=== PATIENT | female | born 2000 | race African-American/Black ===

== ENCOUNTER 2019-11-18 13:34 | Emergency (ER) | payer MEDICAID ==
[2019-11-18 14:32] LABS: Bilirubin Negative (Negative); Blood, Urine 2+ (Negative); Clarity Turbid (Clear); Glucose, Urine (Dipstick) Normal (Negative); Leukocyte Negative Leu/uL (Negative); Nitrite Negative (Negative); Protein, Urine (Dipstick) Negative (Neg-Trace); RBC/HPF Greater than 50 HPF (0-3); Squamous Epithelial 0-3 HPF (0-3); Urobilinogen Normal mg/dL (Less than 2)
[2019-11-18 14:36] LABS: Pregnancy Test - Urine (BHCG) Negative (Negative); Pregu Control Background? CLEAR/WHITE (CLR/WHITE); Pregu Control Bar Appear? YES (CONTROL BAR); Specific Gravity 1.019 (1.002-1.036)
[2019-11-18 14:43] LABS: Bacteria/HPF 1+ HPF (None Seen)
[2019-11-18 16:23] LABS: #Basophils 0.1 thou/uL (0.0-0.2); #Eosinphils 0.1 thou/uL (0.0-0.7); #Lymphocytes 1.8 thou/uL (1.20-3.40); #Monocytes 0.5 thou/uL (0.11-0.59); #Neutrophils 4.7 thou/uL (1.40-6.50); %Eosinophils 1.6 % (0.0-10.0); %Lymphocytes 25.2 % (21.0-51.0); %Monocytes 7.4 % (0.0-10.0); %Neutrophils 64.8 % (42.0-75.0); Hemoglobin 14.9 g/dL (12.0-16.0); Mean Corpuscular HGB CONC 32.8 g/dL (32.0-36.0); Mean Corpuscular Hemoglobin 32.5 pg (27.0-31.0); Mean Platelet Volume 7.3 fL (7.4-10.4); Platelet Count 288 thou/uL (130-400); RBC Distribution Width 11.4 % (11.5-14.5); White Blood Cell (WBC) Count 7.2 thou/uL (4.8-10.8)
== END 2019-11-18 18:06 | disposition home or self-care (01) ==
LOC: ERS 13:34
DX: N39.0 Urinary tract infection, site not specified (principal); N93.9 Abnormal uterine and vaginal bleeding, unspecified
CPT/HCPCS: 36415; 81003; 81015; 81025; 84702; 85025; 86900; 86901; 99284

== ENCOUNTER 2020-06-09 16:24 | Emergency (ER) | payer MEDICAID, SELFPAY ==
[2020-06-09] MEDS ORDERED: Ciprofloxacin HCL/Dexameth Otic Drops 7.5 ml Bottle ONE (16:34)
== END 2020-06-09 16:44 | disposition home or self-care (01) ==
LOC: ERS 16:24
DX: H60.93 Unspecified otitis externa, bilateral (principal)
CPT/HCPCS: 99282

== ENCOUNTER 2020-07-06 02:23 | Emergency (ER) | payer OTHER ==
[2020-07-06 03:18] LABS: Bacteria/HPF None Seen HPF (None Seen); Bilirubin Negative (Negative); Blood, Urine Negative (Negative); Clarity Turbid (Clear); Glucose, Urine (Dipstick) Normal (Negative); Ketone, Urine Negative (Negative); Leukocyte 25 Leu/uL (Negative); Nitrite Negative (Negative); Protein, Urine (Dipstick) Negative (Neg-Trace); RBC/HPF 0-3 HPF (0-3); Urobilinogen Normal mg/dL (Less than 2); WBC/HPF 0-3 HPF (0-3)
[2020-07-06 03:30] LABS: #Basophils 0.1 thou/uL (0.0-0.2); #Eosinphils 0.1 thou/uL (0.0-0.7); #Lymphocytes 2.7 thou/uL (1.20-3.40); #Monocytes 0.8 thou/uL (0.11-0.59); #Neutrophils 7.8 thou/uL (1.40-6.50); %Basophils 0.6 % (0.0-1.0); %Eosinophils 1.1 % (0.0-10.0); %Lymphocytes 23.6 % (21.0-51.0); %Monocytes 7.1 % (0.0-10.0); %Neutrophils 67.6 % (42.0-75.0); Hemoglobin 11.9 g/dL (12.0-16.0); Mean Corpuscular HGB CONC 34.6 g/dL (32.0-36.0); Mean Corpuscular Hemoglobin 32.6 pg (27.0-31.0); Mean Corpuscular Volume 94.2 fL (78.0-98.0); Mean Platelet Volume 6.9 fL (7.4-10.4); Platelet Count 307 thou/uL (130-400); RBC Distribution Width 11.9 % (11.5-14.5); Red Blood Cell (RBC) Count 3.65 mill/uL (4.20-5.40); White Blood Cell (WBC) Count 11.5 thou/uL (4.8-10.8)
[2020-07-06 03:53] LABS: ALT (SGPT) 11 U/L (8-55); AST (SGOT) 16 U/L (5-34); Albumin 3.9 g/dL (3.5-5.0); Alkaline Phosphatase 48 U/L (40-110); Anion Gap 13 mmol/L (10-20); BUN (Urea Nitrogen) 13 mg/dL (7.0-18.7); Bilirubin, Total 0.2 mg/dL (0.2-1.2); Calc. Creatinine Clearance 0 mL/min (70-130); Calcium 9.2 mg/dL (7.8-10.44); Carbon Dioxide 22 mmol/L (22-29); Chloride 104 mmol/L (98-107); Estimated GFR-MDRD Greater than 90; Globulin 3.2 g/dL (2.4-3.5); Glucose 73 mg/dL (70-105); Potassium 3.4 mmol/L (3.5-5.1); Protein, Total 7.1 g/dL (6.0-8.3); Sodium 136 mmol/L (136-145)
[2020-07-06 08:23] LABS: SARS-CoV-2 MS2 Positive; SARS-CoV-2 N Gene Negative; SARS-CoV-2 S Gene Negative; SARS-CoV-2 by NAA Not Detected (NotDetected); SARS-CoV-2 orf1ab Negative
== END 2020-07-06 04:15 | disposition home or self-care (01) ==
LOC: ERS 02:23
DX: O98.512 Other viral diseases complicating pregnancy, second trimester (principal); B34.9 Viral infection, unspecified; O99.012 Anemia complicating pregnancy, second trimester; Z20.828 Contact with and (suspected) exposure to other viral communicable diseases; Z3A.15 15 weeks gestation of pregnancy
CPT/HCPCS: 36415; 80053; 81003; 81015; 85025; 87086; 87635; 99284; U0003

== ENCOUNTER 2020-08-08 09:47 | Outpatient (CLI) | payer OTHER ==
--- NOTE | 2020-08-08 11:06 | ULT ---
EXAM: Complete obstetrical ultrasound PROVIDED CLINICAL HISTORY: Evaluate anatomy COMPARISON: None. FINDINGS: Number of gestations: Single. Presentation: Breech. Placental location: Anterior Previa: No evidence for previa. Cervical length: 3.1 cm ESAU: 13.2 cm. heart rate: 160 bpm. Biparietal diameter: 4.9cm, 20 weeks 6 days, . Head circumference: 18.2 cm, 20 weeks 5 days, Abdominal circumference: 15.1 cm, 20 weeks 3 days, Femoral length: 3.5cm, 21 weeks 0 days, Estimated weight: 364 g +/- 53g SURVEY: head: Normal appearing. Cerebellum: Normal appearing. Cisterna magna: Normal appearing. Lateral ventricles: Normal appearing. 4 chamber heart: Normal appearing.. Stomach: Normal appearing. Kidneys: Normal appearing. Cord insertion: Normal appearing. Bladder: Normal appearing. Spine: Normal appearing. Lips and nose: Normal appearing. Extremities: Normal appearing. Three-vessel CORD: Normal appearing. The estimated gestational age by ultrasound is 20 weeks 6 days. IMPRESSION: 1. Single live intrauterine gestation with size and dates as above.
== END 2020-08-08 09:48 | disposition home or self-care (01) ==
LOC: BICULT 09:47
PROVIDERS: ATTEND Family Medicine
DX: Z34.02 Encounter for supervision of normal first pregnancy, second trimester (principal); Z3A.20 20 weeks gestation of pregnancy
CPT/HCPCS: 76805

== ENCOUNTER 2020-08-28 12:50 | Day surgery (SDC) | payer OTHER ==
[2020-08-28 13:23] VITALS: BP 108/65; TEMP 99.1
[2020-08-28 13:35] VITALS: BMI 28.3
[2020-08-28] MEDS ORDERED: Acetaminophen/Codeine 30-300mg Tablet PO SCH (14:45)
[2020-08-28] MEDS ORDERED: hydrALAZINE 20 MG/ML VIAL SLOW IVP PRN ×2 (16:03→23:35)
[2020-08-28] MEDS ORDERED: Acetaminophen/Codeine 30-300mg Tablet PO PRN (17:13)
--- NOTE | 2020-08-29 00:59 | HP ---
PRIMARY OB: Kye Mendez MD CHIEF COMPLAINT: Fall with back pain. HISTORY OF PRESENT ILLNESS: The patient is a 20-year-old G2, P0 female with an intrauterine at 23 weeks and 5 days, who is presenting to Labor and Delivery after a fall that occurred yesterday approximately 20-22 hours previously. The patient reports that she was walking up onto her porch, carrying groceries. She stepped onto something, slipped backwards, hit her back on a pole or a bar and then hit the ground of the porch with her back. The patient reports that she had difficulty sleeping because of how sore she was and came in today because of the pain that she has been having. The patient reports her pain primarily is in her back and in her shoulder. She denies significant uterine contractions. She denies vaginal bleeding or leakage of fluid. She denies any fever, cough, headache, chest pain, shortness of breath, nausea, vomiting, diarrhea, constipation, hip problems, knee problems, or muscle weakness. She denies vaginal bleeding, leakage of fluid, or urinary urgency or frequency. PAST MEDICAL HISTORY: Negative. PAST SURGICAL HISTORY: She had a lumpectomy on her breast. ALLERGIES: NO KNOWN DRUG ALLERGIES. MEDICATIONS: vitamins. SOCIAL HISTORY: Denies drug, alcohol, or tobacco use. OB LABS: Unavailable at time of dictation. REVIEW OF SYSTEMS: Per HPI. PHYSICAL EXAMINATION: VITAL SIGNS: Blood pressure is 108/65, heart rate of 89, respiratory rate of 18, and temperature 98.1. GENERAL: She appears to be in no acute distress. She is alert, oriented, cooperative, and pleasant to interact with. HEAD: Normocephalic and atraumatic. LUNGS: Clear to auscultation bilaterally. HEART: Has a regular rate and rhythm. ABDOMEN: Gravid, soft, nontender. EXTREMITIES: Nontender. She has point tenderness in her right deltoid and her paravertebral muscles of her upper and middle back are all very tender to palpation. She also has tenderness that she reports in her right intercostal muscles, in her lower ribcage, which she says has been present for several weeks now. heart tracing shows the fetus in the 150s with moderate long-term variability. No contractions visible on the tocometer. Blood type is A positive. ASSESSMENT AND PLAN: The patient is a 20-year-old G2, P0 female with an intrauterine at 23 weeks and 5 days, presenting nearly 24 hours after a fall onto her back. The patient has no evidence of labor or concerning signs for abruption. Her abdomen is nontender. Fundus is nontender. No contractions visible. Most of her pain is musculoskeletal complications from her fall and we demonstrated and discussed various stretches that she can do. We have encouraged heat to the area and scheduled Tylenol. We have also planned on giving her and have given her two Tylenol No. 3 here at Labor and delivery and a prescription for 10 tablets of Tylenol No. 3 for her to take at home to help her sleep over the next few days. The patient has also been counseled to call her primary OB and let him know what has happened and see when he would like to see her. Fetus has a category 1 tracing and reassuring for gestational age. The patient has been discharged home. Job ID: [id number]
[2020-08-29] MEDS ORDERED: FLU VACC QS2020-21(6MOS UP)/PF 60 MCG/0.5 ML SYRINGE IM ONE (14:00)
== END 2020-08-28 15:53 | disposition home health service (06) ==
LOC: L&D/OP 12:50
PROVIDERS: ATTEND Family Medicine
DX: O99.891 Other specified diseases and conditions complicating pregnancy (principal); M54.9 Dorsalgia, unspecified; W18.31XA Fall on same level due to stepping on an object, initial encounter; Y92.008 Other place in unspecified non-institutional (private) residence as the place of occurrence of the external cause
CPT/HCPCS: 99282

== ENCOUNTER 2022-03-30 23:22 | Emergency (ER) | payer OTHER ==
[2022-03-31 00:24] LABS: Bacteria/HPF None Seen HPF (None Seen); Bilirubin Negative (Negative); Blood, Urine Negative (Negative); Clarity Clear (Clear); Glucose, Urine (Dipstick) Normal (Negative); Ketone, Urine Negative (Negative); Leukocyte 250 Leu/uL (Negative); Nitrite Negative (Negative); Protein, Urine (Dipstick) Negative (Neg-Trace); RBC/HPF 0-3 HPF (0-3); Specific Gravity, Urine 1.013 (1.002-1.036); Urobilinogen Normal mg/dL (Less than 2); WBC/HPF 0-3 HPF (0-3); pH, Urine 6.5 (5.0-9.0)
== END 2022-03-31 02:19 | disposition home or self-care (01) ==
LOC: ERS 23:22
DX: O26.892 Other specified pregnancy related conditions, second trimester (principal); R10.2 Pelvic and perineal pain; O99.891 Other specified diseases and conditions complicating pregnancy; M54.50 Low back pain, unspecified; Z3A.20 20 weeks gestation of pregnancy
CPT/HCPCS: 76815; 81003; 81015

== ENCOUNTER 2022-09-23 16:29 | Emergency (ER) | payer OTHER ==
[2022-09-23] MEDS ORDERED: Ketorolac Tromethamine 30 MG/ML VIAL ONE (18:09)
== END 2022-09-23 21:03 | disposition left against medical advice (07) ==
LOC: ERS 16:29
DX: Z53.29 Procedure and treatment not carried out because of patient's decision for other reasons (principal)
CPT/HCPCS: J1885